=== PATIENT | male | born 1980 | race Caucasian/White ===

== ENCOUNTER 2018-01-24 13:13 | Emergency (ER) | payer SELFPAY ==
[2018-01-24 13:14] VITALS: BP 118/68; PULSE 59; RESP 16; TEMP 36.6; O2SAT 97; BMI 22.3
--- NOTE | 2018-01-24 13:37 | RAD_ITS ---
STUDY: X-RAY - LEFT HAND, ATTENTION LACERATION SECOND DIGIT FINGER REASON FOR EXAM: Male, 37 years old. Laceration TECHNIQUE: 3 view(s) of the finger were obtained. COMPARISON: None. FINDINGS: Normal metacarpal head. Normal metacarpophalangeal joint. Normal proximal phalanx. There is a small cortical defect seen on lateral view within the dorsal middle phalanx. Normal distal phalanx. Normal proximal interphalangeal joint. Normal distal interphalangeal joint. There is a visualized band of linear density within the finger on the lateral side or radial side which likely represents the laceration site that measures at least 5.9 mm. RAD/Finger(s) Min 2 Views IMPRESSION: Punctate foreign body material in a track which may represent bony fragments. There is a small Cortical defect within the middle phalanx of the lateral view. Electronically Signed: Sanjuana Schaeffer MD at 14:14 EDT Tel , Service support ,
[2018-01-24] MEDS: Diphth,Pertuss(Acell),Tet Vac 0.5 ML Vial IM (13:44)
--- NOTE | 2018-01-24 14:09 | ED.VISSUMM ---
- ER Visit Summary Date of Service: 01/24/18 Chief Complaint: [Injury to left index finger] History of Present Illness: The patient is a 37 M [presents to the emergency department with a laceration to his left index finger that occurred while using a metal blade saw. Patient states that he was making some furniture and lost focus for a moment and accidentally lacerated the dorsum of his finger. Patient is right-hand dominant. Patient unsure of his last tetanus. Patient states that he can move the digit normally.] Physical Examination: [HEENT-PERRLA, EOMI. Cranial nerves II through XII grossly intact. TMs clear. Mucous membranes moist. No adenopathy. Cardiovascular-regular rate and rhythm without murmur or ectopy Lungs-clear to auscultation, chest wall stable without crepitus or subcu emphysema Abdomen-normoactive bowel sounds, soft, nontender, no rebound or rigidity, no peritoneal signs. Extremities-intact ?4, normal range of motion, normal pulses. Left index finger-patient has a 1.8 cm laceration over the dorsum of the middle phalanx onto the lateral aspect. Patient has good strength in extension of the DIP and PIP joint. He has normal sensation to pinprick medially and laterally to the digit. Test Results: [X-ray of the left index finger obtained showed a suspected avulsion of the middle phalanx where the blade struck it. No foreign bodies noted within the wound.] Emergency Department Course and Treatment: [Laceration repair-wound sterilely draped and prepped. 1% lidocaine used to perform a digital block total of 6 cc. Wound cleansed with Shur-Clens and irrigated with copious saline. I did use a turnicot to obtain good hemostasis. On inspection of the wound it is noted that patient had approximately 80% laceration of his extensor tendon. Wound was irrigated with copious saline and using 5-0 nylon a total of] 5 single interrupted sutures placed with good wound edge approximation. Patient tired procedure well. Patient was placed in an aluminum splint. Treatment Plan: [Patient case was discussed with Dr. Tacos Almeida who will see the patient in the office this week and schedule him for possible surgery the following week. Patient was started on Keflex. Patient will be given a prescription for [place] for pain.] Disposition: [Discharged home in stable condition] Impression: [Laceration left index finger 1.8 cm with simple repair. Extensor tendon laceration left index finger] This note was generated with [employer] dictation software. It may contain incorrect words, spelling, and punctuation that were not noted in review of the chart prior to signing ED Disposition - Plan for ED Patient: Chief Complaint: Laceration Referrals: Scott Paredes,Isaura Pillai [Primary Care Provider] -
--- NOTE | 2018-01-24 14:14 | ED.DEP ---
ED Disposition - Plan for ED Patient: Chief Complaint: Laceration Instructions: ED Laceration Hand, ED Laceration Tendon Prescriptions: Hydrocodone Bitart/Apap 5-325 [[place] 5MG-325MG] 1 tab PO Q4H PRN PRN 2 Days #10 tab PRN Reason: Pain Cephalexin [Keflex] 500 mg PO Q6 #40 cap Referrals: [facility]Isaura Pillai [Primary Care Provider] - Tacos Almeida MD [STAFF PHYSICIAN] - 3-5 Days
--- NOTE | 2018-01-24 14:17 | DCINST.ED_ITS ---
ED Disposition - Plan for ED Patient: Chief Complaint: Laceration Instructions: ED Laceration Hand, ED Laceration Tendon Prescriptions: Hydrocodone Bitart/Apap 5-325 [[place] 5MG-325MG] 1 tab PO Q4H PRN PRN 2 Days #10 tab PRN Reason: Pain Cephalexin [Keflex] 500 mg PO Q6 #40 cap Referrals: [facility],Isaura Pillai [Primary Care Provider] - Tacos Almeida MD [STAFF PHYSICIAN] - 3-5 Days
[2018-01-24] MEDS: Cephalexin 250 MG Capsule 500 MG PO (14:25)
== END 2018-01-24 14:29 | disposition home or self-care (01) ==
PROVIDERS: Emergency Provider Emergency Medicine
DX: S56.422A Laceration of extensor muscle, fascia and tendon of left index finger at forearm level, initial encounter (principal); S61.211A Laceration without foreign body of left index finger without damage to nail, initial encounter; F41.9 Anxiety disorder, unspecified; F32.9 Major depressive disorder, single episode, unspecified; Z72.0 Tobacco use; Z79.899 Other long term (current) drug therapy; W29.8XXA Contact with other powered hand tools and household machinery, initial encounter; Y93.89 Activity, other specified; Y92.009 Unspecified place in unspecified non-institutional (private) residence as the place of occurrence of the external cause; Y99.8 Other external cause status
CPT/HCPCS: 12001; 73140; 90471; 90715; 99284

== ENCOUNTER 2018-02-01 10:57 | Day surgery (SDC) | payer SELFPAY ==
[2018-02-01] VITALS (7 sets, daily range): BP systolic 127–141; BP diastolic 84–97; PULSE 56–90; RESP 16–18; TEMP 36.3–37.3; O2SAT 93–98; BMI 21.9
[2018-02-01] MEDS: Cefazolin 2 GM in 0.9% Normal Saline 100 ML IV (13:24)
[2018-02-01] MEDS: Mupirocin Ointment 22gm Tube 1 APPLIC (14:40)
--- NOTE | 2018-02-01 14:54 | OP.PN_ITS ---
Immediate Post-Op Note Date of Procedure: 02/01/18 Primary Surgeon/Physician: Tacos Almeida tobacco drying machine operator: None Pre-Operative Diagnosis: 1. 2.5 horizontal laceration dorsal radial aspect over middle phalanx near the PIP joint (zone 2) with extensor tendon injury. 2. Smoker. Post-Operative Diagnosis: 1. 2.5 horizontal laceration dorsal radial aspect over middle phalanx near the PIP joint (zone 2) with 80% extensor tendon injury and extensor tendon defect radial aspect. 2. Smoker. Surgery/Procedure Performed:: Exploration 2.5 horizontal laceration dorsal radial aspect over middle phalanx near the PIP joint (zone 2) with repair 80% extensor tendon injury and repair extensor tendon defect radial aspect with radial lateral band turnover tendon flap graft reconstruction. Description of Surgical Findings:: 37 year old man presents with a laceration left index finger dorsal radial aspect near PIP joint on middle phalanx (zone 2) that he sustained yesterday from a metal blade saw. He was making some furniture at the time. He went to the ED where the wound was cleansed and suture repaired and splinted. The ED Physician stated at the time of closure that there was an injury to the extensor tendon. Patient complains of pain in his left index finger. He denies any numbness. Xray was done in the ED which showed punctate foreign body material in a track which may represent bony fragments. There is a small cortical defect within the middle phalanx. Patient is right hand dominant. Today the patient underwent exploration 2.5 horizontal laceration dorsal radial aspect over middle phalanx near the PIP joint (zone 2) with repair 80% extensor tendon injury and repair extensor tendon defect radial aspect with radial lateral band turnover tendon flap graft reconstruction. Total tourniquet time - 51 minutes. Estimated Blood Loss: 2 ml. Specimen's removed: None. Drains: None. Type of Anesthesia:: General - Admit VTE Documentation VTE Present on Admission: No VTE Mechan Device Prophylaxis: SCD's VTE Pharm Prophylaxis ordered?: No
--- NOTE | 2018-02-01 15:00 | PCM.DC ---
You will use the following diet at home:: No restrictions Discharge Activity: May not drive while taking narcotic pain medications., May Shower - one day. place plastic bag over left hand when showering. Return to work on:: 03/01/18 - tentative. May shower in (days): 1 - wear plastic bag over left hand when showering. May resume sexual activity in: No Restrictions Weight Bearing Status: Weight bearing as tolerated Lifting Restrictions: no lifting with left hand. Keep extremity elevated above heart level: Left Arm Call your doctor if your incision/area has: Continuous Slow Oozing, Sudden Increased Bleeding, Increased Pain/ Swelling, Increased Redness, Foul Smelling Discharge, Swelling at the incision site Call your doctor if you observe: Fever of 101 or Higher, Coldness, Increased Pain, Shortness of breath, Chest pain, Calf discomfort, Uncontrolled pain Suture Line Care: - - after the operative splint has been removed and the silastic splint from OT has been placed, then may apply antibiotic ointment daily to the suture line until the sutures are removed. Change Dressing in (Days):: 7 - will change dressing in office or at OT when the silastic splint is made. Cleanse incision/area with: - - after the operative splint has been removed and the silastic splint from OT has been placed, then may get the incision wet in the shower. Additional Dressing/Incision Instructions:: Will make appointment with OT for a silastic splint then range of motion exercises at the appropriate time. Allergies/Adverse Reactions: Allergies No Known Allergies Allergy (Verified 01/25/18 16:23) Medications to take at Discharge Paroxetine HCl 20 mg PO DAILY 01/24/18 Ibuprofen 200 mg PO Q6H PRN PRN 01/29/18 Doxycycline [Vibramycin] 100 mg PO BID #20 cap 02/01/18 Oxycodone HCl/Acetaminophen [Percocet 5/325] 1 - 2 tab PO 4X/DAY PRN PRN 5 Days #40 tab 02/01/18 The following prescriptions were given: Oxycodone HCl/Acetaminophen [Percocet 5/325] 1 - 2 tab PO 4X/DAY PRN PRN 5 Days #40 tab PRN Reason: Pain Doxycycline [Vibramycin] 100 mg PO BID #20 cap Primary [facility] Physician: [facility] [facility] [Primary Care Provider] - Test Results: Test results from this visit will be discussed in further detail at your follow-up appointment, if applicable. Please Follow Up With: Tacos Almeida MD When: one week. call [phone] for appt. Please Follow Up With: Occupational Therapy When: one week. will call to make the appt. Proposed Discharge Date: 02/01/18
--- NOTE | 2018-02-01 15:05 | DCINST_ITS ---
You will use the following diet at home:: No restrictions Discharge Activity: May not drive while taking narcotic pain medications., May Shower - one day. place plastic bag over left hand when showering. Return to work on:: 03/01/18 - tentative. May shower in (days): 1 - wear plastic bag over left hand when showering. May resume sexual activity in: No Restrictions Weight Bearing Status: Weight bearing as tolerated Lifting Restrictions: no lifting with left hand. Keep extremity elevated above heart level: Left Arm Call your doctor if your incision/area has: Continuous Slow Oozing, Sudden Increased Bleeding, Increased Pain/ Swelling, Increased Redness, Foul Smelling Discharge, Swelling at the incision site Call your doctor if you observe: Fever of 101 or Higher, Coldness, Increased Pain, Shortness of breath, Chest pain, Calf discomfort, Uncontrolled pain Suture Line Care: - - after the operative splint has been removed and the silastic splint from OT has been placed, then may apply antibiotic ointment daily to the suture line until the sutures are removed. Change Dressing in (Days):: 7 - will change dressing in office or at OT when the silastic splint is made. Cleanse incision/area with: - - after the operative splint has been removed and the silastic splint from OT has been placed, then may get the incision wet in the shower. Additional Dressing/Incision Instructions:: Will make appointment with OT for a silastic splint then range of motion exercises at the appropriate time. Allergies/Adverse Reactions: Allergies No Known Allergies Allergy (Verified 01/25/18 16:23) Medications to take at Discharge Paroxetine HCl 20 mg PO DAILY 01/24/18 Ibuprofen 200 mg PO Q6H PRN PRN 01/29/18 Doxycycline [Vibramycin] 100 mg PO BID #20 cap 02/01/18 Oxycodone HCl/Acetaminophen [Percocet 5/325] 1 - 2 tab PO 4X/DAY PRN PRN 5 Days #40 tab 02/01/18 The following prescriptions were given: Oxycodone HCl/Acetaminophen [Percocet 5/325] 1 - 2 tab PO 4X/DAY PRN PRN 5 Days #40 tab PRN Reason: Pain Doxycycline [Vibramycin] 100 mg PO BID #20 cap Primary [facility] Physician: [facility] [facility] [Primary Care Provider] - Test Results: Test results from this visit will be discussed in further detail at your follow- up appointment, if applicable. Please Follow Up With: Tacos Almeida MD When: one week. call [phone] for appt. Please Follow Up With: Occupational Therapy When: one week. will call to make the appt. Proposed Discharge Date: 02/01/18
[2018-02-01] MEDS: Acetaminophen 325 MG Tablet PO (16:33)
[2018-02-01] MEDS: oxyCODONE 5 MG Tablet PO (16:33)
--- NOTE | 2018-02-01 17:10 | PCM.OPRPT ---
Report of Operation Date of Procedure: 02/01/18 Pre-Operative Diagnosis: 1. 2.5 horizontal laceration dorsal radial aspect over middle phalanx near the PIP joint (zone 2) with extensor tendon injury. 2. Smoker. Post-Operative Diagnosis: 1. 2.5 horizontal laceration dorsal radial aspect over middle phalanx near the PIP joint (zone 2) with 80% extensor tendon injury and extensor tendon defect radial aspect. 2. Smoker. Surgery/Procedure Performed:: Exploration 2.5 horizontal laceration dorsal radial aspect over middle phalanx near the PIP joint (zone 2) with repair 80% extensor tendon injury and repair extensor tendon defect radial aspect with radial lateral band turnover tendon flap graft reconstruction. Description of Surgical Findings:: 37 year old man presents with a laceration left index finger dorsal radial aspect near PIP joint on middle phalanx (zone 2) that he sustained yesterday from a metal blade saw. He was making some furniture at the time. He went to the ED where the wound was cleansed and suture repaired and splinted. The ED Physician stated at the time of closure that there was an injury to the extensor tendon. Patient complains of pain in his left index finger. He denies any numbness. Xray was done in the ED which showed punctate foreign body material in a track which may represent bony fragments. There is a small cortical defect within the middle phalanx. Patient is right hand dominant. Patient was informed of the risks and complications of the procedure including alternatives to surgery. These were discussed with the patient personally. Patient voices understanding and wishes to proceed. Some of the risks and complications were included in a form from the [place] [employer]. Some of the risks and complications that were discussed included but were not inclusive of failure to diagnose including symptom relief, pain, infection, numbness, stiffness, loss of digit, RSD (CRPS), need for further surgery, contracture, and wound healing problems. Encouraged patient to stop smoking as it may have deleterious effects on wound healing. Total tourniquet time - 51 minutes. religious ritual slaughterer: None Type of Anesthesia:: General Specimen's removed: None. Drains: None. Estimated Blood Loss (mL): 2 ml. Description of Procedure: Patient was taken to OR in supine position and was placed under general anesthesia. The left hand was prepped and draped in the usual fashion. SCD's were placed for DVT prophylaxis. Perioperative antibiotics were given intravenously. Using xylocaine with epinephrine, the left index finger was infiltrated with a digital metacarpal block to help with postop pain relief. An Esmarch bandage was applied as the tourniquet was elevated to 250 mmHg. Under loupe magnification, I made zig zag incisions proximal and distal to the injury laceration down to the extensor tendon. There was about an 80% tendon laceration in zone 2. The ulnar lateral band was intact. On the radial side of the tendon and involving the radial lateral band, there was some tendon loss. I irrigated the wound with saline. I dissected the tissue radially and the dorsal radial sensory nerve was intact. Since the laceration extended onto the radial side of the finger. Further dissection showed the radial digital nerve to be intact. I then repaired the extensor tendon ulnarly with 4-0 Nylon interrupted vertical mattress sutures. For the radial tendon defect, I created a distal tendon turnover flap graft by making a vertical incision onto the distal aspect of the radial lateral band. This dissected a portion of the distal radial lateral band in half and allowed this portion of the tendon to turn over to provide additional length for closure repair of the tendon and maintain continuity of the tendon. This closure repair was done with 4-0 Nylon interrupted vertical mattress sutures. After irrigation of the wound with saline, I started to close the incisions with 5-0 Nylon simple interrupted sutures and vertical mattress interrupted sutures. The tourniquet was released after 51 minutes. Hemostasis obtained with gentle pressure, elevation, and electrocautery. There was no vascular compromise on the skin flaps. Antibiotic ointment was applied to the suture line followed by Xeroform gauze and 2x2 gauze and 2 inch Phong wrap. I fashioned a volar plaster splint to maintain the index finger in extension at the level of the IP joints and flexion at the MP joint and dorsiflexion at the wrist joint. This was followed by a compression pool wrap. Patient tolerated the procedure well and was sent to PACU in satisfactory condition. Patient will be sent home on antibiotics and pain medication. Patient will followup in a week for a wound check. Will make an appointment with OT for a silastic splint and to begin range of motion exercises at the appropriate time. His sutures will be removed in two weeks. Grafts/Implants Used: None. - Complications None. - Admit VTE Documentation VTE Present on Admission: No VTE Mechan Device Prophylaxis: SCD's VTE Pharm Prophylaxis ordered?: No Code Visit Surgery Charges CPT - 24551 ICD-10 - S61.211A, S66.321A, F17.200
== END 2018-02-01 17:28 | disposition home or self-care (01) ==
LOC: SDC 10:58 → AC 10:59
PROVIDERS: Referring Provider Surgery; Visit Provider Surgery
PROC: (CPT 26418; principal; 2018-02-01 12:45)
DX: S66.321A Laceration of extensor muscle, fascia and tendon of left index finger at wrist and hand level, initial encounter (principal); F41.9 Anxiety disorder, unspecified; F32.9 Major depressive disorder, single episode, unspecified; F17.200 Nicotine dependence, unspecified, uncomplicated; Z79.2 Long term (current) use of antibiotics; Z79.899 Other long term (current) drug therapy; W29.8XXA Contact with other powered hand tools and household machinery, initial encounter; Y93.89 Activity, other specified; Y92.89 Other specified places as the place of occurrence of the external cause; Y99.8 Other external cause status
CPT/HCPCS: 01810; 26418; J7120; J2405

== ENCOUNTER 2018-02-08 09:23 | Outpatient (RCR) | payer SELFPAY ==
--- NOTE | 2018-02-09 12:22 | HP.OTEVAL_ITS ---
Patient's Visit Information YANG BENITEZ is a 37 year old M, referred to Occupational Therapy by Tacos Almeida, with a diagnosis of Index Finger Laceration with tendon of L hand. Date of Evaluation: 02/08/18 Occupational Therapist: Lupis Red, OTR/L, CHT - Subjective Subjective: pt. arrives and states that he cut finger with saw while making a table. Upon arriving, pt. was wearing a dressing over index finger and no surgical splint. pt. reported that he has been moving index finger into flexion often at home.The initial injury occured 2 weeks ago and sx occured one week ago. The surgical report indicates that the tendon was not completely ruptured on the date of injury. Pt. underwent extensor tendon repair. - Pain L hand 3 Pain Intensity Range: 0, 1, 2, 3 - ROM PIP: 0/97 in R index DIP: 0/70 in R index ROM Comments: pt. ROM not tested in L index d/t pt. having recent extensor sx. - Strength Paid Search Marketing Strategist: 115# in R, L NT Lateral Pinch: 18 # in R, L NT Tripod Pinch: 21# in R, L NT Strength Comments: pt. strength not tested in L hand d/t pt. having recent extensor sx. - Edema Other: swelling in the index finger - Sensation Index: 3.61 in the tip of the index finger Sensation Comments: pt. demo decreased sensation in the L tip of index finger d/t nn injury involved with laceration. - DASH-Disabilities of Arm, Shoulder& Hand DASH Sum: 60 - Goals Goal:: Patient will increase overall grinder set up operator thread tool strength by 20 lbs. by completing strengthening exercises and stretches in order to complete BADL?s and IADL?s. Patient will improve lateral and tripod grasps by 10 lbs. by completing strengthening and stretching exercises in order to complete BADL?s and IADL?s. Goal:: Patient will increase ROM in L index finger in order to make a composite fist by completing strengthening and stretching exercises in order to complete BADL?s and IADL?s. Goal:: Patient will have decreased swelling, numbess/tingling and report no pain in order to complete BADL?s and IADL?s. Goal:: Patient will demo improved sensation and be able to detect normal sensation of 2.83 monofilament in L index finger to be able to complete BADL's and IADL's with increased I. Goal:: Patient will demo understanding of extensor tendon protocol and sensory re-education strategies for increased I with BADL's and IADL's. - Rehabilitation General Assessment: pt. recently inquired a Index Finger Laceration with tendon of L hand after cutting self with a saw to make a table. D/t the recent injury pt. presents with decreased strength and ROM, decreased sensation, numbness/tingling, increased pain and swelling, and decreased ability to complete BADL's and IADL's. Pt. would benefit from OT services 1-2x/wk for 6 weeks. Patient is self-pay, therefore, pt. would like to keep visits at a minimum. The extensor tendon protocol will be followed for this pt. Rehabilitation Potential: Good - Anticipated Interventions Anticipated Interventions: A/AAROM/PROM, Strengthening, Triggerpoint Release, Sensory Retraining, Modalities, Orthoses, Joint Protection/Energy Conservation, Ergonomic Education, ADL Training, Education re Diagnosis, Home Program - Visit Plan Frequency: 1-2x /Week Duration: 6 Weeks TEXT: Thank you for the opportunity to evaluate your patient. For Medicare and Medicare HMO plans, please review the plan of care and approve it. It will need to be FAXED BACK to us at [phone] for Medicare purposes. Please let me know if there are questions or concerns regarding this plan of care. Physician Signature: Date:
--- NOTE | 2018-04-21 15:46 | HP.OTDCSUM ---
HP - OT D/C Summary It has been my pleasure to treat YANG BENITEZ under orders from Tacos Almeida MD, for the diagnosis of Index Finger Laceration with tendon of L hand for a total of 1 visit(s). Please see the following information for a summary of their discharge status. - Objective Objective/Function: OT educated pt. about wearing gutter splint as often as possible and not actively moving L index finger into flexion. OT provided education to pt. regarding sensory re-education after nn injury and extensor tendon protocol. - Goals Patient Goals: Regain Strength, Decrease Pain, Decrease Swelling/Stiffness, Use Hand/Wrist/Arm Normally Again, Decrease Tingling/Numbness, Increase ROM, Be More Independent in ADLS, Resume Former Household Responsibilities (Cooking,Cleaning,Yard, etc.), Resume Hobbies Goal:: Patient will increase overall vice president financial strength by 20 lbs. by completing strengthening exercises and stretches in order to complete BADL?s and IADL?s. Patient will improve lateral and tripod grasps by 10 lbs. by completing strengthening and stretching exercises in order to complete BADL?s and IADL?s. Goal:: Patient will increase ROM in L index finger in order to make a composite fist by completing strengthening and stretching exercises in order to complete BADL?s and IADL?s. Goal:: Patient will have decreased swelling, numbess/tingling and report no pain in order to complete BADL?s and IADL?s. Goal:: Patient will demo improved sensation and be able to detect normal sensation of 2.83 monofilament in L index finger to be able to complete BADL's and IADL's with increased I. Goal:: Patient will demo understanding of extensor tendon protocol and sensory re-education strategies for increased I with BADL's and IADL's. - D/C Information Discharge Comments: Pt has not been to therapy since eval- pt d/c at this time due to non attendance. If there are questions or concerns regarding this patient's occupational therapy, please fell free to call me at [phone]. Thank you for the referral of this patient. Sincerely, Lupis Red, OTR/L, CHT
== END 2018-02-08 19:00 | disposition home or self-care (01) ==
LOC: OT 09:23
PROVIDERS: Referring Provider Surgery; Visit Provider Surgery
DX: S61.211D Laceration without foreign body of left index finger without damage to nail, subsequent encounter (principal); S66.321D Laceration of extensor muscle, fascia and tendon of left index finger at wrist and hand level, subsequent encounter
CPT/HCPCS: 97166; 97760

== ENCOUNTER → 2024-09-13 | Outpatient (CLI) | payer OTHER, SELFPAY ==
[2024-09-13 17:38] LABS: ALB/GLOB Ratio 1.8 RATIO (0.9-2.4); AST(SGOT) 19 U/L (<=37); Alanine Aminotransfer ALT/SGPT 17 U/L (<=46); Albumin, Serum 4.5 g/dL (3.5-5.0); Alkaline Phosphatase 67 U/L (40-129); Anion Gap 12 (5-15); BUN 7 mg/dL (4-19); BUN/Creat Ratio 10.9 RATIO (10-20); Calcium,Total 9.4 mg/dL (7.6-11.0); Chloride 108 mmol/L (98-108); Cholesterol 152 mg/dL (<=200); Creatinine, Serum 0.69 mg/dL (0.70-1.20); EST Glomerular Filtration Rate 117 (>60); Globulin 2.5 g/dL (2.2-4.2); Glucose 95 mg/dL (70-99); High Density Lipoprotein 56 mg/dL; Low Density Lipoprotein Calc. 61 mg/dL; Potassium 4.1 mmol/L (3.3-5.1); Protein, Total 6.9 g/dL (5.9-8.4); Sodium Level 141 mmol/L (133-145); Total Bilirubin 0.16 mg/dL (0.00-1.30); Triglycerides 177 mg/dL; Very Low Density Lipoprotein 35 mg/dL (5-40); cholesterol:hdl ratio screen 2.74
[2024-09-13 17:47] LABS: CRP < 3.00 mg/L (0.0-3.0)
[2024-09-13 17:56] LABS: Absolute Lymphocyte Count 2.03 X10^3/uL (0.83-4.51); Basophil# 0.05 X10^3/uL; Basophil% 0.9 % (0-1); Eosinophils% 3.4 % (0-5); Hematocrit 46.5 % (40-54); Hemoglobin 15.9 g/dL (13.0-16.5); Lymphocyte # 2.03 X10^3/ul (0.83-4.51); Lymphocyte % 34.8 % (19-41); Mean Corp Hgb Conc 34.2 g/dL (32-36); Mean Corpuscular Hgb 32.2 pg (27.0-32.0); Mean Corpuscular Volume 94.1 fL (80-94); Mean Platelet Vol. 10.3 fl (6.2-12.0); Monocyte# 0.58 X10^3/uL; Monocyte% 9.9 % (0-10); NRBC Flagged by Analyzer 0 % (0-5); Neutrophil # 2.97 X10^3/uL (2.7-7.7); Neutrophil % 50.8 % (47-70); Platelet Count 231 K/mm3 (150-450); RBC Distribution Width CV 12.8 % (11.6-14.6); RBC Distribution Width SD 44.4 fl (35.1-43.9); Red Blood Count 4.94 M/mm3 (4.6-6.2); White Blood Count 5.8 K/mm3 (4.4-11.0)
[2024-09-13 18:01] LABS: Erythrocyte Sedimentation Rate 6 mm/hr (0-20)
[2024-09-13 18:42] LABS: Hemoglobin A1c 5.7 % (<=5.6)
== END | disposition home or self-care (01) ==
LOC: VSLAB 16:19
PROVIDERS: PCP Nurse Practitioner Family; Visit Provider Nurse Practitioner Family
DX: G43.909 Migraine, unspecified, not intractable, without status migrainosus (principal); Z13.1 Encounter for screening for diabetes mellitus; Z13.220 Encounter for screening for lipoid disorders
CPT/HCPCS: 36415; 80053; 80061; 83036; 84443; 85025; 85652; 86140